=== PATIENT | female | born 1980 | race Caucasian/White ===

== ENCOUNTER 2017-06-04 21:09 | Emergency (ER) | payer OTHER ==
[~2017-06-04 21:09] MED LIST: CEPH-460 PO; NAPR500 PO; ULTR50TA5 PO
[2017-06-04 21:14] VITALS: BP 177/100; PULSE 87; RESP 16; TEMP 98.6; O2SAT 99
[2017-06-04 23:55] VITALS: BP 157/101; PULSE 88; RESP 18; O2SAT 100
[2017-06-04] MEDS ORDERED: HYDR-3516 PO (23:55)
--- NOTE | 2017-06-05 01:14 | PD ---
HPI Chief Complaint: Abdominal Pain Time Seen by Provider: 00:11 Travel History International Travel<30 days: No Contact w/Intl Traveler<30days: No Traveled to known affect area: No History of Present Illness HPI The patient's 36 years old. She is a history of endometriosis and has undergone hysterectomy with left oophorectomy. She reports residual pain in the right abdomen. Yesterday an ultrasound was performed about a outside gynecology office in [place]. She arrives tonight wondering what the results may have been. She states the pain is different than usual for her. She's had no vomiting however reports nausea. No diarrhea. No vaginal bleeding or discharge. There is pain and superior pubic abdomen and radiates to the right upper quadrant. She was seen here about 3 days ago and a CMP CBC and CT abdomen and pelvis were significant only for right ovarian cyst. PFSH Past Medical History Diminished Hearing: No Hypertension: Yes Reproductive: Yes (ENDOMETRIOSIS, OVARIAN CYSTS) Influenza Vaccination: Yes ?: Not Ovarian Cysts: Yes Past Surgical History Gynecologic Surgery: Yes (L OVARY REMOVED) Hysterectomy: Yes (PARTIAL) Social History Alcohol Use: Yes (socially) Tobacco Use: No Substance Use: No Allergies-Medications (Allergen,Severity, Reaction): Coded Allergies: [place] And Derivatives (Verified Allergy, Unknown, 06/04/17) Reported Meds & Prescriptions Reported Meds & Active Scripts Active Reported Hydrocodone-Acetaminophen 5-325 mg Tab 1 Tab PO Q6H PRN Review of Systems Except as stated in HPI: all other systems reviewed are Neg General / Constitutional: No: Fever Gastrointestinal: Positive: Nausea Physical Exam Narrative GENERAL: 36 yo F, WNWD, mild distress 2/2 pain SKIN: Warm and dry. HEAD: Atraumatic. Normocephalic. EYES: Pupils equal and round. No scleral icterus. No injection or drainage. ENT: No nasal bleeding or discharge. Mucous membranes pink and moist. NECK: Trachea midline. No JVD. CARDIOVASCULAR: Regular rate and rhythm. RESPIRATORY: No accessory muscle use. Clear to auscultation. Breath sounds equal bilaterally. GASTROINTESTINAL: Soft. Minimal suprapubic abdomen. Minimal R flank TTP. MUSCULOSKELETAL: Extremities without clubbing, cyanosis, or edema. No obvious deformities. NEUROLOGICAL: Awake and alert. No obvious cranial nerve deficits. Motor grossly within normal limits. Five out of 5 muscle strength in the arms and legs. Normal speech. PSYCHIATRIC: Appropriate mood and affect; insight and judgment normal. Data Data Last Documented VS Vital Signs Date Time Temp Pulse Resp B/P (MAP) Pulse Ox O2 Delivery O2 Flow Rate FiO2 06/05/17 02:20 06/04/17 23:55 88 18 100 Room Air 06/04/17 21:14 98.6 VS reviewed Orders Orders Urinalysis - C+S If Indicated (06/05/17 00:28) Labs Laboratory Tests Test 06/05/17 01:25 Urine Color LIGHT-YELLOW Urine Turbidity HAZY Urine pH 5.0 Urine Specific [place] 1.016 Urine Protein NEG mg/dL Urine Glucose (UA) NEG mg/dL Urine Ketones NEG mg/dL Urine Occult Blood NEG Urine Nitrite NEG Urine Bilirubin NEG Urine Urobilinogen LESS THAN 2.0 MG/DL Urine Leukocyte Esterase SMALL Urine RBC 1 /hpf Urine WBC 2 /hpf Urine Squamous Epithelial Cells 3 /hpf Urine Mucus FEW /lpf Microscopic Urinalysis Comment CULT NOT INDICATED MDM Medical Decision Making Medical Screen Exam Complete: Yes Emergency Medical Condition: Yes Medical Record Reviewed: Yes Differential Diagnosis IUP, UTI, ectopic , ov torsion, appendicitis, TOA, cervicitis, BV, Trichomoniasis, ov cyst, hernia, mittelschmerz, pain from menstruation Narrative Course This case was discussed with Dr. Escudero, pt psychiatric nursing aide in [place], who reports the patient's pelvic ultrasound revealed a 1.8 centimeter right ovarian cyst possibly hemorrhagic. No other acute disease. UA. Normal Patient reassessed at 2:15 AM and found to be resting comfortably. Work up discussed. Pt agreeable w plan: dc home, f/u w gynecology Diagnosis Primary Impression: Ovarian cyst Qualified Codes: N83.201 - Unspecified ovarian cyst, right side Referrals: [facility] 2 days Additional Instructions: You have a choice when it comes to health care, and we are glad that you chose [facility]. Hopefully, we have met your expectations on today's visit. You are welcome to return to [facility] at any time, as we are committed to meeting the health care needs of our community. Med/Other Pt SpecificInfo: Prescription(s) given Disposition: DISCHARGE HOME Condition: Stable Juanito Cole MD Jun 05, 2017 01:14
[2017-06-05 01:54] LABS: BLOOD, URINE NEG (NEG); COMMENT (UR) CULT NOT INDICATED; CULTURE IF INDICATED CULT NOT INDICATED; GLUCOSE,URINE NEG (NEG); KETONE, URINE NEG (NEG); MUCUS URINE FEW /lpf (OCC); NITRITE,URINE NEG (NEG); SQUAMOUS EPITHELIAL CELL URINE 3 /hpf (0-5); URINE COLOR LIGHT-YELLOW (YELLW/STRAW)
== END 2017-06-05 02:28 | disposition home or self-care (01) ==
LOC: NEPE 21:09
DX: N83.201 Unspecified ovarian cyst, right side (principal); R11.0 Nausea; I10 Essential (primary) hypertension; Z87.42 Personal history of other diseases of the female genital tract
CPT/HCPCS: 81001; 99283